=== PATIENT | male | born 1980 | race African-American/Black ===

== ENCOUNTER 2018-03-30 21:32 | Emergency (ER) | payer BC ==
[~2018-03-30] VITALS: Ht 180.3 cm; Wt 80.7 kg
[~2018-03-30 21:32] MED LIST: ADDERALL 5 MG TA5 M1; METHOCARBAMOL500 M2 PO; NAPROSYN500 MG PO
[2018-03-30] MEDS ORDERED: AMPHETAMINE SAL10 MG PO (21:42)
[2018-03-30] MEDS ORDERED: VYVANSE20 MG PO (21:43)
[2018-03-30 23:03] VITALS: BP 133/93
== END 2018-03-30 23:02 | disposition home or self-care (01) ==
LOC: ER 21:32
DX: I10 Essential (primary) hypertension (principal); F17.210 Nicotine dependence, cigarettes, uncomplicated; F90.9 Attention-deficit hyperactivity disorder, unspecified type

== ENCOUNTER 2018-10-05 14:44 | Emergency (ER) | payer BC ==
[~2018-10-05] VITALS: Ht 180.3 cm; Wt 81.7 kg
[~2018-10-05 14:44] MED LIST changes: +AMPHETAMINE SAL10 MG PO; +VYVANSE20 MG PO
[2018-10-05 15:26] LABS: ABSOLUTE NEUTROPHILS 14.3 thou/uL (1.4-8.2); BASOPHILS 0.3 % (0.0-2.0); EOSINOPHILS 0.8 % (0.0-3.0); HEMATOCRIT 49.2 % (42.0-52.0); HEMOGLOBIN 16.4 gm/dL (14.0-18.0); MCH 30.3 pg (26.0-34.0); MCHC 33.2 g/dL (28.0-37.0); MCV 91.2 fL (80.0-100.0); MONOCYTES 3.4 % (1.0-8.0); PLATELET COUNT 228 thou/uL (150-400); POLYS 88.5 % (36.0-66.0); RDW 13.3 % (10.5-14.5); WBC 16.2 thou/uL (4.0-11.0)
[2018-10-05 15:30] LABS: CALCIUM 9.4 mg/dL (8.5-10.1); CREATININE 1.1 mg/dL (0.7-1.3); MAGNESIUM 2.7 mg/dL (1.8-2.4); POTASSIUM 4.5 mmol/L (3.5-5.1)
[2018-10-05 16:43] VITALS: BP 126/92
== END 2018-10-05 16:42 | disposition home or self-care (01) ==
LOC: ER 14:44
PROVIDERS: Emergency Medicine
DX: G40.909 Epilepsy, unspecified, not intractable, without status epilepticus (principal); S09.93XA Unspecified injury of face, initial encounter; F17.210 Nicotine dependence, cigarettes, uncomplicated; X58.XXXA Exposure to other specified factors, initial encounter; Y93.89 Activity, other specified; Y92.89 Other specified places as the place of occurrence of the external cause; Y99.8 Other external cause status

== ENCOUNTER → 2018-11-02 | Outpatient (CLI) | payer BC ==
--- NOTE | 2018-11-05 20:42 | SLE ---
[facility] [place] [address] POLYSOMNOGRAPHY STUDY Name: HOMA MONTEIRO Room #: REG [facility]#: [id number] Admission: 11/02/18 ������������������ Attend Phys: Giuseppe Martinez MD Discharge: ������������������ Date of : 76 Report #: [id number] THIS REPORT FOR: //name// CC: Giuseppe Weber NP DATE OF SERVICE: 11/02/2018 REFERRING PHYSICIAN: Annetta Weber. The patient is 37 years old, who weighs 179 pounds with a BMI of 25. The patient has a history of daytime somnolence with an Lytton score of 9. The patient also has a history of insomnia. A sleep study was performed at [facility] to rule out JER. During the night study, the patient spent 610 minutes in bed and slept for 399 minutes with a low sleep efficiency of 65%. Sleep latency was prolonged at 92 minutes with a REM latency of 156 minutes. Overall, sleep architecture showed increased stage 1 sleep, normal stage 2 sleep, absent N3 sleep and normal REM sleep. During the night study, the patient had no apneas, but 42 hypopneas. The patient's apnea-hypopnea index was 6.3 per hour with a REM index of 14 per hour and a supine index of 2.1 per hour. EKG monitoring revealed an average heart rate of 65 beats per minute. No sustained arrhythmias observed. PLMS were seen at an index of 66 per hour and 11 per hour caused EEG arousals. Nocturnal oximetry study revealed an average oxygen saturation of 95% with a lowest of 63%. A 2.5 minutes were spent with oxygen saturation of less than 89%. The pattern was suggesting hypoventilation with some more pronounced desaturations during REM sleep. Due to low AHI, the patient did not meet the criteria for CPAP initiation. Multiple sleep latency tests the next day were also canceled due to finding of sleep apnea and severe PLMS. IMPRESSION: 1. Mild sleep apnea-hypopnea syndrome. Total apnea-hypopnea index 6.3 per hour with a REM apnea-hypopnea index of 14 per hour. 2. Reduced sleep efficiency of 65% resulting from sleep onset and sleep maintenance insomnia. This can also contribute to the patient's daytime [facility] [address] [place] [address] POLYSOMNOGRAPHY STUDY Name: CAYETANOHOMA C Room #: REG [facility]#: [id number] Admission: 11/02/18 ������������������ Attend Phys: Giuseppe Martinez MD Discharge: ������������������ Date of : 76 Report #: [id number] somnolence. 3. Severe periodic limb movements of sleep at an index of 66 per hour and 11 per hour caused EEG arousals. This can also contribute to day gabby somnolence. 4. Mild nocturnal hypoxia suggesting hypoventilation with increased desaturations during REM sleep. RECOMMENDATIONS: 1. I would recommend treating the patient's sleep apnea initially with CPAP to see an improvement in patient's excessive daytime somnolence. 2. I would also recommend treating the patient's insomnia effectively. 3. The patient has severe PLMS which caused significant EEG arousals. This can also result in daytime somnolence and would recommend treating with dopaminergic agonist agents if the patient is clinically symptomatic or has symptoms of restless legs during the day. 4. Multiple sleep latency tests was canceled the next day due to significant sleep disruptions resulting from PLMS, reduce sleep efficiency and diagnosis of sleep apnea. 5. The patient should be followed up once above conditions are treated to see an improvement in the patient's symptoms. ��������������������������������������������� <ELECTRONICALLY SIGNED> ���������������������������������������� By: Giuseppe Martinez MD ��������������������������������������������� 11/05/18 2042 1846 1909 Giuseppe Martinez MD /nt
== END ==
LOC: SLEEPLAB 10-31 11:17
DX: G47.30 Sleep apnea, unspecified (principal); G47.34 Idiopathic sleep related nonobstructive alveolar hypoventilation

== ENCOUNTER 2018-11-18 09:45 | Emergency (ER) | payer BC ==
[~2018-11-18] VITALS: Ht 180.3 cm; Wt 81.7 kg
[2018-11-18 11:35] LABS: BASOPHILS 0.2 % (0.0-2.0); EOSINOPHILS 0.2 % (0.0-3.0); HEMATOCRIT 50.4 % (42.0-52.0); HEMOGLOBIN 16.8 gm/dL (14.0-18.0); LYMPHOCYTES 5.3 % (24.0-44.0); MCH 30.3 pg (26.0-34.0); MCHC 33.3 g/dL (28.0-37.0); MCV 91.2 fL (80.0-100.0); MONOCYTES 3.6 % (1.0-8.0); PLATELET COUNT 205 thou/uL (150-400); POLYS 90.7 % (36.0-66.0); RBC 5.52 mil/uL (4.50-6.00); RDW 13.4 % (10.5-14.5); WBC 16.5 thou/uL (4.0-11.0)
[2018-11-18 11:41] LABS: CALCIUM 9.7 mg/dL (8.5-10.1); CREATININE 1.1 mg/dL (0.7-1.3); POTASSIUM 4.2 mmol/L (3.5-5.1)
[2018-11-18 11:47] LABS: ALBUMIN 4.4 g/dL (3.4-5.0); TOTAL BILIRUBIN 0.3 mg/dL (<0.1-1.0)
[2018-11-18 12:01] LABS: URINE BILIRUBIN NEGATIVE (Negative); URINE BLOOD NEGATIVE (Negative); URINE CLARITY CLEAR; URINE COLOR YELLOW; URINE GLUCOSE-RANDOM* NEGATIVE (Negative); URINE KETONES NEGATIVE (Negative); URINE LEUKOCYTES-REFLEX NEGATIVE (Negative); URINE NITRITE-REFLEX NEGATIVE (Negative); URINE PROTEIN (DIPSTICK) NEGATIVE (Negative); URINE SPECIFIC GRAVITY >= 1.030 (1.005-1.035); URINE UROBILINOGEN 0.2 E.U./dl (0.2-1.0)
[2018-11-18 12:15] VITALS: BP 132/87
== END 2018-11-18 12:15 | disposition home or self-care (01) ==
LOC: ER 09:45
PROVIDERS: Physician Assistant
DX: S09.8XXA Other specified injuries of head, initial encounter (principal); M25.512 Pain in left shoulder; R56.9 Unspecified convulsions; F17.210 Nicotine dependence, cigarettes, uncomplicated; F90.9 Attention-deficit hyperactivity disorder, unspecified type; Z79.899 Other long term (current) drug therapy; W50.0XXA Accidental hit or strike by another person, initial encounter; Y93.89 Activity, other specified; Y92.89 Other specified places as the place of occurrence of the external cause; Y99.8 Other external cause status

== ENCOUNTER 2018-12-18 16:25 | Emergency (ER) | payer BC ==
[~2018-12-18] VITALS: Ht 180.3 cm; Wt 81.7 kg
--- NOTE | ~2018-12-18 | EMS ---
[address] [address] EMS Patient Care Report Name: HOMA MONTEIRO Room #: JUANITA Irvin#: [id number] Admission: 12/18/18 Attend Phys: Discharge: Date of : [birth year] Report #: [id number] THIS REPORT FOR: //name// Report Transmitted: 12/18/2018 17:24 EMS Care Summary [place], [place]/[facility] Incident [id number] @ 12/18/2018 16:04 Incident Location [address] [id number] Patient HOMA MONTIERO Male, 38 Years 1980 Patient Address [address] [address] Patient History Epilepsy,Seizures, Patient Allergies Intravenous Dye, Patient Medications Levetiracetam, Chief Complaint Seizure Disposition Transported No Lights/[place] Dispatch Reason Sick Person Transported To [facility] Narrative 38 y/o male with a seizure and left shoulder pain. [facility] [address] [place] [address] EMS Patient Care Report Name: HOMA MONTEIRO Room #: JUANITA Irvin#: [id number] Admission: 12/18/18 Attend Phys: Discharge: Date of : 76 Report #: [id number] On arrival found pt walking toward EMS with P28 on scene. Pt stated he has a hx of seizures and thought he had one earlier today. Pt stated he woke up and had urinated on himself and he stated that usually means he had a seizure. Pt had clean clothes on when EMS arrived and pt was not post ictal. Pt stated that mainly the reason he was calling today was because he has chronic pain related to a left shoulder injury when he was a kid and when he has a seizure afterward he has increased pain in his shoulder and wanted to be taken to the hospital. EMS monitored pt/VS en route to [facility] ED. Transferred care of pt to [facility] ED RN without incident. Initial Vitals @16:21P: 70,BP: 135/84,CO: 5,SpO2: 100, @16:13P: 76,R: 18,BP: 132/95,Pain: 6/10,GCS: 15,SpO2: 98,Revised Trauma: 12, Assessments @16:11MENTAL:No Abnormalities,SKIN:No Abnormalities,HEENT:Head/Face: No Abnormalities,Eyes: No Abnormalities,Neck/Airway: No Abnormalities,LUNG SOUNDS:General: No Abnormalities,Left Upper: No Abnormalities,Right Upper: No Abnormalities,Left Lower: No Abnormalities,Right Lower: No Abnormalities,ABDOMEN:General: No Abnormalities,Left Upper: No Abnormalities,Right Upper: No Abnormalities,Left Lower: No Abnormalities,Right Lower: No Abnormalities,PELVIS//GI:No Abnormalities,EXTREMITIES:Left Arm: Other,Capillary Refill: Left Upper: < 2 Sec,Right Arm: No Abnormalities,Left Leg: No Abnormalities,Right Leg: No Abnormalities,PULSE:Radial: 2+ Normal,NEURO:Seizures, Impression Seizures Procedures @16:11ALS AssessmentResponse: UnchangedSucceeded Timeline 16:03,Call Received 16:03,Dispatch Notified 16:04,Dispatched 16:05,En Route 16:09,On Scene 16:11,At Patient 16:11,ALS Assessment,Response: UnchangedSucceeded, 16:13,BP: 132/95 M,PULSE: 76,RR: 18 R,SPO2: 98 Ox,ETCO2: ,BG: ,PAIN: 6,GCS: 15, 16:14,Depart Scene 16:20,At Destination 16:21,BP: 135/84 M,PULSE: 70,RR: R,SPO2: 100 Ox,ETCO2: ,BG: ,PAIN: ,GCS: , 16:35,Call Closed [facility] [address] [place] [address] EMS Patient Care Report Name: HOMA MONTEIRO Room #: REG [facility].#: [id number] Admission: 12/18/18 Attend Phys: Discharge: Date of : 76 Report #: [id number] Disclaimer v1.1 Copyright 2019 [employer] This EMS Care Summary contains data elements from the applicable legal record (which may be displayed differently). It is designed to provide pertinent information for the following purposes: continuity of care, clinical quality, and state data reporting. The complete legal record is available to ED staff and administrators of the receiving hospital in [employer]'s Patient Tracker. All data is provided "as is."
[2018-12-18] MEDS ORDERED: KEPPRA1000 MG PO (16:32)
[2018-12-18 16:50] LABS: ABSOLUTE NEUTROPHILS 15.3 thou/uL (1.4-8.2); BASOPHILS 0.4 % (0.0-2.0); EOSINOPHILS 2.8 % (0.0-3.0); HEMATOCRIT 47.9 % (42.0-52.0); HEMOGLOBIN 15.9 gm/dL (14.0-18.0); LYMPHOCYTES 13.1 % (24.0-44.0); MCH 30.3 pg (26.0-34.0); MCHC 33.2 g/dL (28.0-37.0); MCV 91.2 fL (80.0-100.0); MONOCYTES 4.3 % (1.0-8.0); PLATELET COUNT 242 thou/uL (150-400); POLYS 79.4 % (36.0-66.0); RBC 5.25 mil/uL (4.50-6.00); RDW 13.5 % (10.5-14.5); WBC 19.3 thou/uL (4.0-11.0)
[2018-12-18 17:01] LABS: CALCIUM 9.9 mg/dL (8.5-10.1); CREATININE 1.3 mg/dL (0.7-1.3); POTASSIUM 3.8 mmol/L (3.5-5.1)
[2018-12-18 17:06] LABS: ALBUMIN 4.3 g/dL (3.4-5.0); TOTAL BILIRUBIN 0.5 mg/dL (<0.1-1.0); TOTAL PROTEIN 7.8 g/dL (6.4-8.2)
[2018-12-18 17:57] LABS: URINE BILIRUBIN NEGATIVE (Negative); URINE BLOOD NEGATIVE (Negative); URINE CLARITY CLEAR; URINE COLOR YELLOW; URINE GLUCOSE-RANDOM* NEGATIVE (Negative); URINE KETONES NEGATIVE (Negative); URINE LEUKOCYTES-REFLEX NEGATIVE (Negative); URINE NITRITE-REFLEX NEGATIVE (Negative); URINE PROTEIN (DIPSTICK) NEGATIVE (Negative); URINE SPECIFIC GRAVITY >= 1.030 (1.005-1.035); URINE UROBILINOGEN 0.2 E.U./dl (0.2-1.0)
[2018-12-18 18:06] VITALS: BP 135/94
--- NOTE | 2018-12-22 07:44 | EKG ---
[address] [address] [employer] [place] [address] ELECTROCARDIOGRAM REPORT Name: HOMA MONTEIRO Room #: ON LICENSE OF [facility] Brandee#: [id number] Admission: 12/18/18 Attend Phys: Discharge: 12/18/18 Date of : 76 Report #: [id number] THIS REPORT FOR: //name// 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
== END 2018-12-18 18:06 | disposition home or self-care (01) ==
LOC: ER 16:25
PROVIDERS: Emergency Medicine
DX: S50.811A Abrasion of right forearm, initial encounter (principal); S00.512A Abrasion of oral cavity, initial encounter; R56.9 Unspecified convulsions; F17.210 Nicotine dependence, cigarettes, uncomplicated; F90.9 Attention-deficit hyperactivity disorder, unspecified type; Z91.041 Radiographic dye allergy status; X58.XXXA Exposure to other specified factors, initial encounter; Y92.89 Other specified places as the place of occurrence of the external cause; Y93.89 Activity, other specified; Y99.8 Other external cause status

== ENCOUNTER 2019-08-26 13:11 | Emergency (ER) | payer BC ==
[~2019-08-26] VITALS: Ht 180.3 cm; Wt 69.4 kg
[~2019-08-26 13:11] MED LIST changes: +KEPPRA1000 MG PO
[2019-08-26 13:47] LABS: ABSOLUTE NEUTROPHILS 8.8 thou/uL (1.4-8.2); BASOPHILS 0.4 % (0.0-2.0); EOSINOPHILS 3.8 % (0.0-3.0); HEMATOCRIT 47.1 % (42.0-52.0); HEMOGLOBIN 15.9 gm/dL (14.0-18.0); LYMPHOCYTES 14.4 % (24.0-44.0); MCH 31.5 pg (26.0-34.0); MCHC 33.8 g/dL (28.0-37.0); MCV 93.1 fL (80.0-100.0); MONOCYTES 5.7 % (1.0-8.0); PLATELET COUNT 193 thou/uL (150-400); POLYS 75.7 % (36.0-66.0); RBC 5.07 mil/uL (4.50-6.00); RDW 12.8 % (10.5-14.5); WBC 11.6 thou/uL (4.0-11.0)
[2019-08-26 13:50] LABS: URINE BILIRUBIN NEGATIVE (Negative); URINE BLOOD TRACE (Negative); URINE CLARITY CLEAR; URINE COLOR YELLOW; URINE GLUCOSE-RANDOM* NEGATIVE (Negative); URINE KETONES NEGATIVE (Negative); URINE LEUKOCYTES-REFLEX NEGATIVE (Negative); URINE NITRITE-REFLEX NEGATIVE (Negative); URINE PROTEIN (DIPSTICK) NEGATIVE (Negative); URINE SPECIFIC GRAVITY 1.015 (1.005-1.035); URINE UROBILINOGEN 0.2 E.U./dl (0.2-1.0)
[2019-08-26 14:41] LABS: CALCIUM 9.1 mg/dL (8.5-10.1); CREATININE 1.9 mg/dL (0.7-1.3); POTASSIUM 4.7 mmol/L (3.5-5.1)
[2019-08-26 14:46] LABS: ALBUMIN 4.3 g/dL (3.4-5.0); TOTAL BILIRUBIN 0.9 mg/dL (<0.1-1.0); TOTAL PROTEIN 6.9 g/dL (6.4-8.2)
[2019-08-26] MEDS ORDERED: NORCO 5-325 TA1 EAC1 PO (15:50)
[2019-08-26] MEDS ORDERED: HEARTBURN RELIE10 MG PO (15:50)
[2019-08-26 15:55] VITALS: BP 151/96
== END 2019-08-26 15:55 | disposition home or self-care (01) ==
LOC: ER 13:11
PROVIDERS: Emergency Medicine
DX: K21.9 Gastro-esophageal reflux disease without esophagitis (principal); R35.0 Frequency of micturition; F90.9 Attention-deficit hyperactivity disorder, unspecified type; G40.909 Epilepsy, unspecified, not intractable, without status epilepticus; F17.210 Nicotine dependence, cigarettes, uncomplicated; Z91.041 Radiographic dye allergy status

== ENCOUNTER 2020-09-15 11:21 | Emergency (ER) | payer OTHER ==
[~2020-09-15] VITALS: Ht 180.3 cm; Wt 76.2 kg
[~2020-09-15 11:21] MED LIST changes: +HEARTBURN RELIE10 MG PO; +NORCO 5-325 TA1 EAC1 PO
[2020-09-15] MEDS ORDERED: OXCARBAZEPINE150 MG PO (11:28)
[2020-09-15] MEDS ORDERED: LEVETIRACETAM500 M1 PO (11:28)
[2020-09-15 13:17] LABS: HEMATOCRIT 47.7 % (42.0-52.0); HEMOGLOBIN 16.3 gm/dL (14.0-18.0); MCH 31.5 pg (26.0-34.0); MCHC 34.2 g/dL (28.0-37.0); MCV 92.1 fL (80.0-100.0); PLATELET COUNT 194 thou/uL (150-400); RBC 5.17 mil/uL (4.50-6.00); RDW 13.3 % (10.5-14.5); WBC 20.7 thou/uL (4.0-11.0)
[2020-09-15 13:42] LABS: CALCIUM 9.2 mg/dL (8.5-10.1); CREATININE 1.5 mg/dL (0.7-1.3)
[2020-09-15 13:47] LABS: ALBUMIN 4.3 g/dL (3.4-5.0); TOTAL BILIRUBIN 0.3 mg/dL (0.2-1.0); TOTAL PROTEIN 7.5 g/dL (6.4-8.2)
[2020-09-15 14:19] LABS: ABSOLUTE NEUTROPHILS 18.8 thou/uL (1.4-8.2)
[2020-09-15] MEDS ORDERED: NORCO7.5 PO (14:35)
[2020-09-15 15:09] VITALS: BP 144/96
--- NOTE | 2020-09-16 13:08 | EKG ---
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
== END 2020-09-15 15:28 | disposition home or self-care (01) ==
LOC: ER 11:21
PROVIDERS: Emergency Medicine
DX: S01.112A Laceration without foreign body of left eyelid and periocular area, initial encounter (principal); S39.012A Strain of muscle, fascia and tendon of lower back, initial encounter; G40.909 Epilepsy, unspecified, not intractable, without status epilepticus; F12.90 Cannabis use, unspecified, uncomplicated; F17.210 Nicotine dependence, cigarettes, uncomplicated; Z91.041 Radiographic dye allergy status; W01.198A Fall on same level from slipping, tripping and stumbling with subsequent striking against other object, initial encounter; Y93.89 Activity, other specified; Y92.89 Other specified places as the place of occurrence of the external cause; Y99.9 Unspecified external cause status

== ENCOUNTER 2020-10-05 10:45 | Emergency (ER) | payer OTHER ==
[~2020-10-05] VITALS: Ht 180.3 cm; Wt 72.6 kg
[~2020-10-05 10:45] MED LIST changes: +LEVETIRACETAM500 M1 PO; +NORCO7.5 PO; +OXCARBAZEPINE150 MG PO
[2020-10-05 11:02] VITALS: BP 140/90
== END 2020-10-05 13:08 | disposition home or self-care (01) ==
LOC: ER 10:45
DX: S01.91XD Laceration without foreign body of unspecified part of head, subsequent encounter (principal); F17.210 Nicotine dependence, cigarettes, uncomplicated; Z79.2 Long term (current) use of antibiotics; X58.XXXD Exposure to other specified factors, subsequent encounter